=== PATIENT | male | born 2000 | race African-American/Black ===

== ENCOUNTER 2019-04-04 | Emergency (ER) | payer OTHER | END 2019-04-05 00:20 | disposition DCI. | DRG 605 | PROC: 0HQ1XZZ Repair Face Skin, External Approach (ICD-10-PCS; principal; 2019-04-04) | DX: S01.81XA Laceration without foreign body of other part of head, initial encounter (principal); W18.2XXA Fall in (into) shower or empty bathtub, initial encounter; Y93.E1 Activity, personal bathing and showering; Y92.142 Bathroom in prison as the place of occurrence of the external cause ==